=== PATIENT | male | born 1975 | race Caucasian/White ===

== ENCOUNTER 2024-12-14 11:38 | Emergency (ER) | payer SELFPAY ==
[~2024-12-14] VITALS: Ht 190.5 cm; Wt 117.5 kg
--- NOTE | 2024-12-14 11:49 | ERN ---
ED Note History of Present Illness Stated Complaint: OTHER Chief Complaint: Other Problems Time Seen by MD: 11:40 Dictation: PATIENT IS A 49-YEAR-OLD MALE COMING IN TODAY WITH COMPLAINTS OF BEING AN ALCOHOLIC AND LATELY HAS BEEN HAVING CRAVINGS FOR ALCOHOL AND DOES NOT WANT TO DRINK ANYMORE. HE STATES HE STOPPED DRINKING IN JULY AND, IS UNABLE TO RECALL ANY RECENT DRINKING BOUTS. HE DENIES ANY HISTORY OF SEIZURES WITH THE ALCOHOL WITHDRAWAL. STATES HE HAS NO SUICIDAL OR HOMICIDAL IDEATION. WHEN I ASKED HIM IF HE HAD A PRIMARY CARE DOCTOR HE SAID NO BECAUSE DOCTORS WANTS SHE TO TAKE MEDICINES AND MY EPISCOPALIAN PROHIBITS ME FROM TAKEN ANY MEDICINES. PATIENT NOTED TO HAVE A BLUNTED AFFECT Allergies: Coded Allergies: No Known Drug Allergies (Unverified Allergy, Unknown, 12/14/24) Past Medical History Past Medical History: No Pertinent History Additional Past Medical Hx: denies pmhx Surgical History: None RN Note Reviewed/Agreed w/PFSH: Yes Review of System Dictation CONSTITUTIONAL: NEGATIVE EXCEPT FOR HPI HEAD/FACE: NEGATIVE EXCEPT FOR HPI EENT: NEGATIVE EXCEPT FOR HPI RESPIRATORY: NEGATIVE EXCEPT FOR HPI GASTROINTESTINAL/ABDOMINAL: NEGATIVE EXCEPT FOR HPI GENITOURINARY: NEGATIVE EXCEPT FOR HPI MUSCULOSKELETAL: NEGATIVE EXCEPT FOR HPI INTEGUMENTARY: NEGATIVE EXCEPT FOR HPI NEUROLOGICAL/PSYCH: NEGATIVE EXCEPT FOR HPI ALCOHOL ABUSE HEMATOLOGIC/LYMPHATIC: NEGATIVE EXCEPT FOR HPI ALL SYSTEMS NEGATIVE, EXCEPT NOTED ABOVE. 13 POINT REVIEW OF SYSTEMS ASSESSED AND ALL NEGATIVE EXCEPT FOR ABOVE. Initial Vital Sign VS Vital Signs Date Time Temp Pulse Resp B/P (MAP) Pulse Ox O2 Delivery O2 Flow Rate FiO2 12/14/24 11:41 98.2 110 20 140/89 94 Room Air 0 12/14/24 11:47 21 Physical Exam Dictation VITAL SIGNS REVIEWED GENERAL APPEARANCE: ALERT, ORIENTED X 3, NO ACUTE DISTRESS, WELL DEVELOPED, NOURISHED. FLAT AFFECT, DENIES SI HI HEAD AND FACE: NON-TRAUMATIC. EYES: PERRL, PINK CONJUNCTIVAS, EYELID NO TRAUMA, ANTERIOR CHAMBER WITH ARCUS SENILIS. EARS: PINNAS INTACT AND NO SIGNS OF TRAUMA OR ERYTHEMA EAR CANALS CLEAR AND NO DISCHARGE TM NO ERYTHEMA NOSE: NO DISCHARGE, NO BLEEDING. OROPHARYNX: MOUTH NORMAL, TONGUE PINK, PHARYNX CLEAR,NO ERYTHEMA, TONSILS NO EXUDATES, NO ABSCESSES NOTED, MUCOUS MEMBRANE MOIST NECK: SUPPLE, NON-TENDER, NO THYROMEGALY, NO MASSES, NO JVD, NO BRUITS BREAST:DEFERRED CHEST:NO TENDERNESS, NO CREPITUS, NO PARADOXICAL MOVEMENT, NO RETRACTIONS LUNGS:CLEAR, WELL-VENTILATED, SYMMETRIC, NO RALES, NO WHEEZING, NO RHONCHI, NO STRIDOR, GOOD BREATH SOUNDS BILATERALLY HEART: REGULAR RATE, REGULAR RHYTHM, NO MURMUR, NO GALLOPS VASCULAR: NO PERIPHERAL EDEMA, ABDOMEN: SOFT, POSITIVE BOWEL SOUNDS, NONDISTENDED, NO GUARDING, NONTENDER, NO REBOUND, NO MASSES NO HEPATOMEGALY, NO SPLENOMEGALY, NO LAURENT'S SIGN, NO HERNIAS. RECTAL: DEFERRED GENITAL: DEFERRED NEUROLOGICAL: NORMAL SPEECH, MOTOR FUNCTION INTACT, SENSORY FUNCTION INTACT MUSCULOSKELETAL: NECK NONTENDER, FULL RANGE OF MOTION, BACK NONTENDER, FULL RANGE OF MOTION, EXTREMITIES: NONTENDER, FULL RANGE OF MOTION SKIN: COLOR PINK, DRY, NO TURGOR, NO RASH, NO LACERATIONS, NO ABRASIONS, NO CONTUSIONS. LYMPHATIC: DEFERRED Results (Laboratory/Radiology) Laboratory/Radiology Laboratory Tests Test 12/14/24 12:09 White Blood Count 10.0 K/uL (4.8-10.8) Red Blood Count 5.82 MIL/uL (4.50-6.20) Hemoglobin 17.1 g/dL (14.0-18.0) Hematocrit 49.6 % (42-54) Mean Corpuscular Volume 85.2 fL (79-99) Mean Corpuscular Hemoglobin 29.4 pg (27.0-33.0) Mean Corpuscular Hemoglobin Concent 34.5 g/dL (32.0-36.0) Red Cell Distribution Width 13.8 % (11.0-15.5) Platelet Count 260 K/uL (130-400) Mean Platelet Volume 11.0 fL (7.5-10.5) H Immature Granulocyte % (Auto) 0.4 % (0-1) Neutrophils (%) (Auto) 78.5 % (40.0-77.0) H Lymphocytes (%) (Auto) 14.8 % (21.0-51.0) L Monocytes (%) (Auto) 5.7 % (3.0-13.0) Eosinophils (%) (Auto) 0.4 % (0.0-8.0) Basophils (%) (Auto) 0.2 % (0.0-5.0) Neutrophils # (Auto) 7.9 K/uL (1.8-7.7) H Lymphocytes # (Auto) 1.5 K/uL (1.0-4.8) Monocytes # (Auto) 0.6 K/uL (0.1-1.0) Eosinophils # (Auto) 0.04 K/uL (0.00-0.70) Basophils # (Auto) 0.02 K/uL (0.00-0.20) Absolute Immature Granulocyte (auto 0.04 K/uL (0-1) Nucleated Red Blood Cells 0.0 % (0.0-0.19) Sodium Level 139 mmol/L (136-145) Potassium Level 3.4 mmol/L (3.5-5.1) L Chloride Level 100 mmol/L (101-111) L Carbon Dioxide Level 26 mmol/L (21-32) Blood Urea Nitrogen 16 mg/dL (7-18) Creatinine 0.9 mg/dL (0.5-1.3) Glomerular Filtration Rate Calc 105 mL/min (>90) Random Glucose 81 mg/dL (70-105) Total Calcium 9.3 mg/dL (8.5-10.1) Total Creatine Kinase 1582 U/L (21-232) *H Salicylates Level < 2.8 mg/dL (2.8-20.0) L Acetaminophen Level < 1 mcg/mL (10-29) L Serum Alcohol < 3 mg/dL (0-10) Labs Reviewed?: Yes EKG Comment: EKG SINUS TACHYCARDIA/HEART RATE 108/LEFT ANTERIOR FASCICULAR BLOCK/AXIS NORMAL ED Course ED Course Orders Procedure Category Date Status Time Drug Screen Urine LAB 12/14/24 Logged 11:47 Cbc With Differential LAB 12/14/24 Complete 11:47 Alcohol, Blood LAB 12/14/24 Complete 11:47 Salicylate LAB 12/14/24 Complete 11:47 Acetaminophen LAB 12/14/24 Complete 11:47 Urinalysis Profile LAB 12/14/24 Logged 11:47 12 Lead Ekg Tracing- EKG 12/14/24 Complete Technical 11:47 Creatine Kinase, Total LAB 12/14/24 Complete 11:47 Basic Metabolic Panel LAB 12/14/24 Complete 11:47 0.9%Nacl 1000ml (Ns PHA 12/14/24 Complete 1000ml) 13:00 Current Medications Medications (Trade) Dose Ordered Sig/Gavino Route PRN Reason Start Time Stop Time Status Last Admin Dose Admin Sodium Chloride 1,000 ml @ 0 mls/hr ONCE ONCE IV 12/14/24 13:00 12/14/24 13:01 DC Vital Signs Date Time Temp Pulse Resp B/P (MAP) Pulse Ox O2 Delivery O2 Flow Rate FiO2 12/14/24 11:47 98.2 111 20 140/89 94 Room Air* 0 21 12/14/24 11:41 98.2 110 20 140/89 94 Room Air 0 1450/EXPLAINED TO PATIENT THAT I COULD NOT MEDICALLY CLEAR HIM WITH A CK LEVEL OF 1500 AND LOW POTASSIUM. HE IS REFUSING ELECTROLYTE REPLACEMENT TO INCLUDE IV FLUIDS AT THIS TIME. SAYS DISCHARGE ME WITH MEDICAL CLEARANCE TO GO TO [facility]. I SAID I WOULD NOT GIVE HIM MEDICAL CLEARANCE BECAUSE I HAVE NOT CORRECTED THE ELECTROLYTE IMBALANCE IN THE CK LEVEL. HE SAID THEN YOU CAN JUST DISCHARGE ME. DENIES SI OR HI. Medical Decision Making MDM MDM: DIFFERENTIAL DIAGNOSIS: ALCOHOL ABUSE/ELECTROLYTE IMBALANCE/DEHYDRATION/DRUG ABUSE/ANXIETY/SCHIZOPHRENIA RATIONALE: TESTS CONSIDERED AND ORDERED SECONDARY TO SHARED DECISION MAKING INCLUDE: EKG/LABS PREVIOUS OUTSIDE RECORDS REVIEWED: OLD ER VISITS. RISK OF COMPLICATION AND/OR MORBIDITY OR MORTALITY OF PATIENT MANAGEMENT: NONE MEDICATIONS-PER MEDICATION RECONCILIATION NEED FOR HOSPITALIZATION: PATIENT DOES NOT MEET CRITERIA FOR HOSPITALIZATION. NONE NEED FOR EMERGENCY MAJOR/MINOR SURGERY: NO THERE ARE NO SOCIAL CONCERNS WITH THIS PATIENT. PRESCRIPTION DRUG MANAGEMENT NONE PRESCRIPTIONS WILL INCLUDE SYMPTOMATIC CARE PATIENT'S PRIOR EXTERNAL MEDICAL RECORDS FROM OTHER ER VISITS WERE REVIEWED BY ME INDICATED. PRIOR TESTING AND RESULTS FROM PREVIOUS VISITS WERE REVIEWED. PRIOR TESTS WERE TAKEN INTO ACCOUNT WITH MEDICAL DECISION MAKING AND RESOURCE UTILIZATION, INDEPENDENT HISTORIAN/HISTORIANS WERE USED TO OBTAIN COMPLETE MEDICAL HISTORY. I INDEPENDENTLY INTERPRETED THE TEST THAT WERE PERFORMED, RESULTS WERE REVIEWED BY ME AND CONSIDERED FINDINGS ON RADIOLOGY IF ORDERED. MEDICAL MANAGEMENT AND EXAMINATION INTERPRETATION DISCUSSIONS WERE HAD BY ME WITH OTHER QUALIFIED HEALTHCARE PROFESSIONALS INDICATED FOR THE PATIENT'S CARE. DX & DISP Disposition: Discharge Departure Impression: Primary Impression: Alcohol abuse Additional Impressions: Rhabdomyolysis, Hypokalemia, Schizophrenia, Dehydration Condition: Stable Additional Instructions: FOLLOW-UP WITH PRIMARY CARE PROVIDER IN 1 TO 2 DAYS. TAKE MEDICATIONS DIRECTED HERE IN THE EMERGENCY ROOM. OKAY TO CONTINUE HOME MEDICATIONS UNLESS OTHERWISE DISCUSSED DURING YOUR VISIT IN THE EMERGENCY ROOM TODAY. RETURN TO YOUR NEAREST EMERGENCY ROOM IF SYMPTOMS WORSEN OR IF THERE IS NO IMPROVEMENT. CALL 911 IF YOU NEED IMMEDIATE ASSISTANCE. TAKE TYLENOL OR MOTRIN [id number] NEEDED AND IF NO CONTRAINDICATIONS ARE PRESENT. INCREASE ORAL HYDRATION. A WOUND CULTURE OR URINE CULTURE WAS ORDERED HERE IN THE EMERGENCY ROOM DEPARTMENT PLEASE FOLLOW-UP WITH PRIMARY CARE PROVIDER AND ADVISE THEM TO GET REPEAT PORTS FROM OUR FACILITY. IF YOU HAD ANY NAIMA WRAP/SPLINTS THAT WERE APPLIED HERE, PLEASE DO NOT REMOVE THEM UNTIL YOU SEE YOUR PRIMARY CARE OR SPECIALTY. FOLLOW UP WITH YOUR PRIMARY CARE DOCTOR SAL TROPICAL Referrals: SELF,REFERRAL (PCP) ROCKY CARDENAS NP Dec 14, 2024 11:49
[2024-12-14 12:14] LABS: IMMATURE GRANULOCYTE ABSOLUTE 0.04 K/uL (0-1); NUCLEATED RED BLOOD CELLS 0.0 % (0.0-0.19); PLATELET COUNT (AUTO) 260 K/uL (130-400); RED BLOOD CELL COUNT(AUTO) 5.82 MIL/uL (4.50-6.20); RED CELL DISTRIBUTION WIDTH 13.8 % (11.0-15.5); WHITE BLOOD COUNT (AUTO) 10.0 K/uL (4.8-10.8)
[2024-12-14 12:23] LABS: CREATININE 0.9 mg/dL (0.5-1.3); GLOMERULAR FILTR. RATE CALC 105 mL/min (>90); GLUCOSE,RANDOM 81 mg/dL (70-105); SODIUM SERUM 139 mmol/L (136-145); UREA NITROGEN, BLOOD 16 mg/dL (7-18)
--- NOTE | 2024-12-14 12:37 | EKG ---
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
[2024-12-14 12:46] LABS: ALCOHOL, BLOOD < 3 mg/dL (0-10)
[2024-12-14 12:51] LABS: CREATINE KINASE, TOTAL 1582 U/L (21-232)
[2024-12-14] MEDS: 0.9%NACL 1000ML 1,000 ML IV ONE (14:45)
--- NOTE | 2024-12-14 14:45 | NUR ---
PT MOVED TO ED HALLWAY C FOR ASSESMENT AND IV INSERTION FOR NS BOLUS. PT REFUSED IV AND BOLUS AND STATES HE WANTS TO BE DISCHARGED AND SELF ADMIT TO [facility]. ED PROVIDER ROCKY CARDENAS NP MADE AWARE.
[2024-12-14 15:00] VITALS: BP 136/88; PULSE 101; RESP 20; TEMP 98; O2SAT 97
--- NOTE | 2024-12-14 15:00 | NUR ---
PT WAS GIVEN DISCHARGE INSTRUCTIONS AND PT LEFT THEM ON THE STRETCHER.
== END 2024-12-14 15:05 | disposition home or self-care (01) ==
LOC: EDH 11:38
DX: F10.10 Alcohol abuse, uncomplicated (principal); M62.82 Rhabdomyolysis; E87.6 Hypokalemia; E86.0 Dehydration; F20.9 Schizophrenia, unspecified; Y90.0 Blood alcohol level of less than 20 mg/100 ml
CPT/HCPCS: 99284; 82550; 80048; 85025; 36415; 93005; G0481; J7030